=== PATIENT | female | born 1995 | race Caucasian/White ===

== ENCOUNTER 2019-05-26 12:28 | Outpatient (REF) | payer OTHER, SELFPAY ==
--- NOTE | 2019-05-26 14:30 | PAPFT_PTH ---
PATIENT: Bharathi Terrazas LOC: [facility] U#:[id number] AGE/SX: 24/F ROOM: RE05/26/[address]: Em Braden : 1995 BED: DIS: 05/26/2019 SPEC #: [id number] RECD: 05/27/19 13:17 STATUS: [place] REQ #: [id number] BHUPENDRA: 05/26/19 14:[address]: Em Braden DEPT: [facility] Cytology RECD BY: Milvia Baird ENTERED: 05/27/19 13:17 SP TYPE: PAPFT OTHR DR: Zoraida Peters Tissues: 1 - CX/ENDOCX FOR PAP SMEARS Procedures: PAP THIN PREP/[facility] Screening Comments: [id number] (CHLAMYDIA/GC)
[2019-05-30 14:23] LABS: Chlamydia Result Negative (Negative); GC Result Negative (Negative)
== END 2019-05-26 12:48 ==
LOC: NCHCN 12:28
PROVIDERS: PCP Nurse Practitioner Family; Visit Provider Family Medicine
DX: Z00.00 Encounter for general adult medical examination without abnormal findings (principal); Z11.3 Encounter for screening for infections with a predominantly sexual mode of transmission; Z12.4 Encounter for screening for malignant neoplasm of cervix
CPT/HCPCS: 87491; 87591; 88142

== ENCOUNTER 2023-01-26 14:53 | Outpatient (REF) | payer MEDICAID, SELFPAY | END 2023-01-26 14:54 | disposition home or self-care (01) | LOC: NCHCN 14:53 | PROVIDERS: PCP Nurse Practitioner Family; Visit Provider Registered Nurse | DX: N89.8 Other specified noninflammatory disorders of vagina (principal); R39.89 Other symptoms and signs involving the genitourinary system | CPT/HCPCS: 87480; 87510; 87660 ==

== ENCOUNTER 2023-06-24 12:56 | Outpatient (REF) | payer MEDICAID, SELFPAY ==
--- OUTSIDE RECORDS SUMMARY | 2023-06-24 12:58 | XMS_ITS | CCD ---
Author Name Unknown Address [address] [place] [address] [phone] Organization Unknown Address [address] [place] [address] [phone] Care Team Providers Care Professor Of Psychiatry Name Role Phone TORY MORELOS Attending Physician [phone] Vital Signs Unknown or Not Available. Allergies Allergy Code Allergy Type Reaction Status SULFA (sulfonamide) 0 Drug allergy RASH Act yaron Procedures Unknown or Not Available. History of Immunizations Unknown or Not Available. Problems Unknown or Not Available. Results [facility] COVID RHEONIX* - Sadaf ect Date/Time: 05/16/2021 11:29 Test Name Code Test Result Test Units Test Ref Rang e Tier- EXPOSURE N/A SARS COV2 RNA: 14118-7 NEGATIVE N/A REFERENCE RANGE: NEGAT Active Medications Unknown or Not Available. Medications Administered During Visit Unknown or Not Available. Encounters Encounter Diagnosis Diagnosis Code Start Date Exposure to SARS-CoV-2 [id number] Social History Smoking Status Code Start Date End Date Never smoker [id number] Patient Decision Aids Unknown or Not Available. Discharge Instructions You were admitted to [facility] on 05/16/2021 09:16 with a principal diagnosis of Contact with and (suspected) exposure to COVID-19 You had the following tests done:[facility]I COVID RHEONIX* You were discharged from [facility] on 05/16/2021 09:16 Should you have any questions prior to discharge, please contact a member of your healthcare team. If you have left the hospital and have any questions, please contact your primary care physician. Chief Complaint and Reason For Visit Unknown or Not Available. Function Status Unknown or Not Available. Plan of Care Unknown or Not Available. Referral/Transition of Care Unknown or Not Available.
--- OUTSIDE RECORDS SUMMARY | 2023-06-24 12:58 | XMS_ITS | CCD ---
Author Name Unknown Address [address] [place] [address] [phone] Organization Unknown Address [address] [place] [address] [phone] Care Team Providers Care Humanities And Languages Professor Name Role Phone TORY MORELOS Attending Physician [phone] Vital Signs Unknown or Not Available. Allergies Allergy Code Allergy Type Reaction Status SULFA (sulfonamide) 0 Drug allergy RASH Act yaron Procedures Unknown or Not Available. History of Immunizations Unknown or Not Available. Problems Unknown or Not Available. Results [facility] CAILINID JONATHANONIX* - Sadaf ect Date/Time: 06/06/2021 11:11 Test Name Code Test Result Test Units Test Ref Rang e Tier- EXPOSURE N/A SARS COV2 RNA: 16714-9 POSITIVE N/A REFERENCE RANGE: NEGAT Active Medications Unknown or Not Available. Medications Administered During Visit Unknown or Not Available. Encounters Encounter Diagnosis Diagnosis Code Start Date COVID-19 [id number] 06/06/2021 Social History Smoking Status Code Start Date End Date Never smoker [id number] Patient Decision Aids Unknown or Not Available. Discharge Instructions You were admitted to [facility] on 06/06/2021 09:12 with a principal diagnosis of COVID-19 You had the following tests done:CHERI COVID RHEONIX* You were discharged from [facility] on 06/06/2021 09:12 Should you have any questions prior to [...]
[2023-06-25 14:56] LABS: Chlamydia Result Negative (Negative); GC Result Negative (Negative)
== END 2023-06-24 12:57 | disposition home or self-care (01) ==
LOC: NCHCN 12:56
PROVIDERS: PCP Nurse Practitioner Family; Visit Provider Physician Assistant
DX: N89.8 Other specified noninflammatory disorders of vagina; R82.89 Other abnormal findings on cytological and histological examination of urine
CPT/HCPCS: 87491; 87591; 87086; 87480; 87510; 87660